=== PATIENT | male | born 1955 | race Two or more races ===

== ENCOUNTER 2017-03-12 16:50 | Emergency (ER) | payer MEDICAID ==
[~2017-03-12] VITALS: Ht 172.7 cm; Wt 75.0 kg
[2017-03-12] MEDS ORDERED: KETOROLAC 60MG/2ML VIAL IM ONE (19:30)
[2017-03-12 22:18] VITALS: BP 133/82
== END 2017-03-12 22:18 | disposition home or self-care (01) ==
LOC: ER 17:51
DX: S40.012A Contusion of left shoulder, initial encounter (principal); S40.022A Contusion of left upper arm, initial encounter; I10 Essential (primary) hypertension; J45.909 Unspecified asthma, uncomplicated; B19.20 Unspecified viral hepatitis C without hepatic coma; M81.0 Age-related osteoporosis without current pathological fracture; F17.200 Nicotine dependence, unspecified, uncomplicated; W19.XXXA Unspecified fall, initial encounter; Y93.01 Activity, walking, marching and hiking; Y99.8 Other external cause status; Y92.488 Other paved roadways as the place of occurrence of the external cause
CPT/HCPCS: 73000; 73030; 73060; 73090; 73110; 73130; 96372; 99284; J1885; A4565

== ENCOUNTER 2018-04-03 12:38 | Emergency (ER) | payer MEDICAID ==
[~2018-04-03] VITALS: Ht 177.8 cm; Wt 65.0 kg
[2018-04-03] MEDS ORDERED: NITROGLYCERIN 0.4MG TABLET SL SL PRN (15:15)
[2018-04-03] MEDS ORDERED: ASPIRIN 81MG TABLET PO ONE (15:15)
[2018-04-03 16:04] LABS: BASOPHILS % 0.7 % (0.0-2.0); EOSINOPHILS % 3.6 % (0.0-5.0); HEMATOCRIT. 43.5 % (42.0-52.0); HEMOGLOBIN. 14.1 g/dL (14.0-18.0); LYMPHOCYTES % 31.7 % (20.0-50.0); MEAN CORPUSCULAR HEMOGLOBIN 23.9 pg (28.0-32.0); MEAN CORPUSCULAR VOLUME 73.9 fL (80.0-94.0); MEAN PLATELET VOLUME 7.5 fl (7.4-10.4); MONOCYTES % 5.4 % (2.0-8.0); NEUTROPHILS % 58.6 % (40.0-76.0); PLATELET 213 x1000/uL (130-400); RED BLOOD CELL COUNT 5.89 mill/uL (4.7-6.1); RED CELL DISTRIBUTION WIDTH 15.8 % (11.6-14.6)
[2018-04-03 16:08] LABS: CHLORIDE 107 mEq/L (98-107)
[2018-04-03 16:13] LABS: ETHANOL BLOOD < 10 mg/dL
[2018-04-03] MEDS ORDERED: IBUPROFEN 600MG TABLET PO STA (19:14)
[2018-04-03 21:00] VITALS: BP 110/65
== END 2018-04-03 21:00 | disposition home or self-care (01) ==
LOC: ER 12:38 → CANBEDREQ 23:37
DX: R07.89 Other chest pain (principal); I11.9 Hypertensive heart disease without heart failure; R00.1 Bradycardia, unspecified; J45.909 Unspecified asthma, uncomplicated; F17.200 Nicotine dependence, unspecified, uncomplicated; N40.0 Benign prostatic hyperplasia without lower urinary tract symptoms
CPT/HCPCS: 36415; 71045; 80053; 83880; 84484; 85025; 93005; 99285; G0482; Z7610